=== PATIENT | male | born 1975 | race Caucasian/White ===

== ENCOUNTER 2025-02-01 09:28 | Day surgery (SDC) | payer OTHER ==
[~2025-02-01] VITALS: Ht 172.7 cm; Wt 117.7 kg
[2025-02-01] MEDS ORDERED: fentaNYL 100 MCG/2 ML INJECTION As Ordered ONE (10:59)
[2025-02-01] MEDS ORDERED: LIDOCAINE 2% 100MG/5ML SDV (FOR ANES.) As Ordered ONE (10:59)
[2025-02-01] MEDS ORDERED: propofoL 200 MG/20 ML VIAL As Ordered ONE (10:59)
[2025-02-01 11:42] VITALS: TEMP 98.9
[2025-02-01 12:20] VITALS: BP 157/92; O2SAT 96
== END 2025-02-01 12:33 | disposition home or self-care (01) ==
LOC: M OPP 09:28
PROVIDERS: ATTEND Surgery
DX: C18.3 Malignant neoplasm of hepatic flexure (principal); Z13.810 Encounter for screening for upper gastrointestinal disorder; R10.30 Lower abdominal pain, unspecified; Z85.828 Personal history of other malignant neoplasm of skin; Z90.49 Acquired absence of other specified parts of digestive tract
CPT/HCPCS: 43235; 45380; 45381; 88305; J3010